=== PATIENT | female | born 2000 | race Caucasian/White ===

== ENCOUNTER → 2024-01-07 | Day surgery (SDC) | payer OTHER ==
[2024-01-06 11:32] VITALS: BMI 34.2
[~2024-01-07] MED LIST: Bupivacaine PF 0.5% 30 ML VIAL ONE; Clindamycin/D5W 900 mg/50 ml Premix Bag ONE; Dexamethasone 20 MG/5 ML VIAL ONE; EPINEPHrine 1 MG/ML VIAL ONE; HYDROmorphone 0.5 MG/0.5 ML SYRINGE ONE; Ketorolac Tromethamine 30 MG (1 mL) VIAL ONE; Lidocaine 1% PF 5 ML VIAL ONE; Lidocaine 2% 6 ML (Jelly) SYR ONE; Midazolam HCl 2 mg/2 ml Vial ONE; Ondansetron PF 4 MG/2 ML Vial ONE; PROPOFOL 40 ML ONE; Scopolamine 1 mg/72 hour Patch ONE; fentaNYL 50 mcg/mL 1 mL Vial ONE; fentaNYL PF 100 MCG/2 ML SYRINGE ONE
[2024-01-07 10:02] LABS: BHCG - Serum Negative (NEGATIVE); Pregs Control Background? CLEAR/WHITE (CLR/WHITE); Pregs Control Bar Appear? YES (CONTROL BAR)
== END ==
LOC: SDC 08:04
PROVIDERS: ATTEND Orthopaedic Surgery
PROC: 0PSF04Z Reposition Right Humeral Shaft with Internal Fixation Device, Open Approach (ICD-10-PCS; principal; 2024-01-07)
DX: S42.301A Unspecified fracture of shaft of humerus, right arm, initial encounter for closed fracture (principal); Z88.1 Allergy status to other antibiotic agents; X50.0XXA Overexertion from strenuous movement or load, initial encounter
CPT/HCPCS: 84703; C1713; J0171; J0665; J1100; J1170; J1885; J2250; J2405; J2704; J3010; J3490